=== PATIENT | female | born 1995 | race Caucasian/White ===

== ENCOUNTER → 2020-10-10 08:31 | Outpatient (CLI) | payer SELFPAY | LOC: LABSPEC 08:36 | DX: Z11.59 Encounter for screening for other viral diseases (principal) | CPT/HCPCS: 87635; U0005; U0003 ==

== ENCOUNTER 2023-02-11 22:49 | Emergency (ER) | payer OTHER, SELFPAY ==
[2023-02-11 22:53] VITALS: BP 142/99; PULSE 118; RESP 18; TEMP 36.6; O2SAT 99; BMI 32.8
--- NOTE | 2023-02-11 23:04 | RAD_ITS ---
INDICATION: shoulder EXAMINATION/TECHNIQUE: X-RAY - RIGHT XR Shoulder Min 2 Views COMPARISON: None. FINDINGS: SOFT TISSUES: Unremarkable. BONES/JOINTS: No fracture or dislocation. No significant degenerative changes. No erosive changes. RAD/Shoulder min 2 Views IMPRESSION: Unremarkable views of the right shoulder. Electronically Signed: Aiden Serrano DO at 0:21 EDT ,
--- NOTE | 2023-02-11 23:05 | EX.ED.UPPERE ---
HPI History of Present Illness Chief Complaint: Upper Extremity Injury Narrative Narrative: 7-year-old female presenting with right shoulder pain. She states she was at work and patient was self transferring and started to fall so she jumped in front of him and caught him but hit her right shoulder on the wall. She has some pain in the right shoulder but notes there is no limitation in range of motion. She has not related any bruising. No numbness or tingling. PFSH PFSH Medical History Hypothyroid Home Medications albuterol sulfate 90 mcg/actuation aerosol inhaler 2 inh inhalation Q4H PRN shortness of breath or wheezing 02/11/23 [History Last Taken Unknown] cholecalciferol (vitamin D3) 25 mcg (1,000 unit) chewable tablet (VitaJoy Daily D) 1,000 unit PO DAILY 02/11/23 [History Last Taken Unknown] levothyroxine 75 mcg tablet 75 mcg PO DAILY 02/11/23 [History Last Taken Unknown] loratadine 10 mg tablet (Allerclear) 10 mg PO DAILY 02/11/23 [History Last Taken Unknown] Allergy/AdvReac Type Severity Reaction Status Date / Time No Known Allergies Allergy Verified 02/11/23 22:51 Social History Smoking Status: Never smoker ROS ROS ED Constitutional Constitutional ED: Denies chills, fever(s) or sweats Eyes Eyes: Denies blurry vision or change in vision ENT ENT ED: Denies ear pain or sore throat Cardiovascular Cardiovascular: Denies chest pain, palpitations or racing heartbeat Respiratory/Chest Respiratory/Chest: Denies cough, dyspnea or sputum Gastrointestinal Gastrointestinal: Denies abdominal pain, constipation, diarrhea, nausea or vomiting Genitourinary Genitourinary ED: Denies dysuria, hematuria or urinary frequency Musculoskeletal Musculoskeletal: Reports other Details: Right shoulder pain ; Denies arthralgias, myalgias or neck pain Integumentary Denies abscess, Abrasions or rash Neurologic Neurologic: Denies headache(s), paresthesias or weakness Psychiatric Psychiatric: Denies anxiety, depression, suicidal ideation or suicidal thoughts Endocrine Endocrinology: Denies polydipsia or polyuria EXAM Physical Exam Const Vital Signs: 02/11/23 22:53 Temperature 97.8 F Temperature Source Temporal Pulse Rate 118 H Respiratory Rate 18 Blood Pressure 142/99 H Blood Pressure Mean 113 Pulse Ox 99 Positive well nourished HEENT Reports moist mucous membranes Eyes PERRL and EOMs intact bilaterally Resp normal respiratory effort Cardio regular rate Rate: tachycardic Extremity Extremity Narrative: Is to palpation over the right deltoid. There is no limitation in range of motion in flexion, extension, rotation. Patient able to abduct her arm up over her head without any difficulty. Neuro oriented x3 Sensorium / Orientation: alert Psych mental status grossly normal MDM MDM MDM Narrative Medical decision making narrative: Patient presenting with shoulder pain. She has a limitation of range of motion. I do not suspect rotator cuff tear or fracture. Patient requesting x-ray to be done informed. Patient was given ibuprofen. 2 views of the right shoulder on my interpretation show no acute fracture or subluxation. The patient is safe for discharge. She should use Tylenol and ibuprofen for pain. She is given a work restrictions for work. Impression: 1. Right shoulder contusion Lab Data Attestation: I reviewed the patient's lab results. Discharge Plan Triage Chief Complaint: Upper Extremity Injury ED Provider: Basilio Pedraza Dx/Rx/DC Orders Instructions: ED Shoulder Contusion Prescriptions: No Action levothyroxine 75 mcg tablet 75 mcg PO DAILY Patient Comments: Take 1 tablet by mouth once daily. Take on empty stomach. For Thyroid Rx Instructions: 1.5 tabs per day cholecalciferol (vitamin D3) [VitaJoy Daily D] 25 mcg (1,000 unit) tablet,chewable 1,000 unit PO DAILY albuterol sulfate 90 mcg/actuation HFA aerosol inhaler 2 inh INHALATION Q4H PRN (Reason: shortness of breath or wheezing) Patient Comments: Inhale 2 Puffs as instructed every 4 hours as needed for wheezing/shortness of breath (cough). loratadine [Allerclear] 10 mg tablet 10 mg PO DAILY Primary Care Provider: Micki Thomas Referrals: Care Physician,No Primary [Non-Staff] - Clinic,NOW [Non-Staff] - 3-5 Days Disposition Disposition: Home, Self Care
[2023-02-11] MEDS: Ibuprofen 600 MG Tablet PO (23:12)
== END 2023-02-11 23:37 | disposition home or self-care (01) ==
PROVIDERS: Emergency Provider Student in an Organized Health Care Education/Training Program; PCP Internal Medicine; Visit Provider Student in an Organized Health Care Education/Training Program
DX: S40.011A Contusion of right shoulder, initial encounter (principal); E03.9 Hypothyroidism, unspecified; Y99.0 Civilian activity done for income or pay; Z79.899 Other long term (current) drug therapy; X58.XXXA Exposure to other specified factors, initial encounter
CPT/HCPCS: 73030; 99282

== ENCOUNTER 2024-04-25 06:55 | Emergency (ER) | payer BC, SELFPAY ==
[2024-04-25 06:56] VITALS: BP 137/87; PULSE 108; RESP 16; TEMP 36.9; O2SAT 97; BMI 34.7
--- NOTE | 2024-04-25 07:08 | EDS_ITS ---
HPI HPI - GI History of Present Illness Chief Complaint: Abd Pain Informant: patient Abdominal Pain/Flank Pain Onset: Yesterday Context: Sudden Onset Timing: Continuous Quality: Sharp and Stabbing Location: Epigastric and LUQ Worsened by: Food Relieved by: Nothing Nausea/Vomiting/Emesis GI Symptom: Positive for Nausea; Negative for Vomiting Diarrhea/Melena/Hematochezia GI Symptom: Positive for Diarrhea; Negative for Melena or Hematochezia Stool Quality: Positive for Watery Associated Symptoms Associated Symptoms: Negative for Dysuria, Frequency or Hematuria Narrative Narrative: Patient presents with left upper quadrant abdominal pain that began last night. Patient states it began rather suddenly. Patient states it has been constant. Patient describes it as sharp and stabbing. Patient states it is mainly over the left upper quadrant. Patient states it radiates into her epigastric area and then into her right scapular area. Patient states she gets nauseated whenever she tries to eat or drink anything. Patient denies any vomiting. Patient admits to some diarrhea but denies any melena or hematochezia. Patient denies any urinary complaints. Patient denies any fevers but admits to some subjective chills. [facility] Medical History Contusion of right shoulder Hypothyroid Home Medications ?Medication ?Instructions ?Recorded ?Last Taken ?Type albuterol sulfate 90 mcg/actuation 2 inh inhalation Q4H PRN shortness 02/11/23 Unknown History aerosol inhaler of breath or wheezing cholecalciferol (vitamin D3) 25 1,000 unit PO DAILY 02/11/23 Unknown History mcg (1,000 unit) chewable tablet (VitaJoy Daily D) levothyroxine 75 mcg tablet 75 mcg PO DAILY 02/11/23 Unknown History loratadine 10 mg tablet 10 mg PO DAILY 02/11/23 Unknown History (Allerclear) ondansetron 4 mg disintegrating 4 mg PO Q8H PRN PRN Nausea #10 tabs 04/25/24 Unknown Rx tablet Allergy/AdvReac Type Severity Reaction Status Date / Time No Known Allergies Allergy Verified 04/25/24 06:56 Surgical History no surgical history no surgical history Social History (Updated 04/25/24 @ 07:[address] Sathish Lee, DO) Smoking Status: Never smoker alcohol intake: current alcohol intake frequency: holidays/special occasions only ROS ROS ED Constitutional Constitutional ED: Reports chills and subjective; Denies fever(s) Eyes Eyes: Denies blurry vision or change in vision ENT ENT ED: Denies rhinorrhea or sore throat Cardiovascular Cardiovascular: Reports chest pain; Denies palpitations Respiratory/Chest Respiratory/Chest: Denies cough or dyspnea Gastrointestinal Gastrointestinal: Reports abdominal pain, diarrhea and nausea; Denies melena or vomiting Genitourinary Genitourinary ED: Denies dysuria or hematuria Musculoskeletal Musculoskeletal: Reports back pain; Denies neck pain Integumentary Denies abscess or rash Neurologic Neurologic: Denies headache(s) or weakness Allergic/Immunologic Allergic/Immunologic ED: Denies mouth swelling or urticaria EXAM Physical Exam Const Vital Signs: 04/25/24 06:56 Temperature 98.5 F Temperature Source Oral Pulse Rate 108 H Respiratory Rate 16 Blood Pressure 137/87 H Blood Pressure Mean 103 Pulse Ox 97 Oxygen Delivery Method Room Air Positive well nourished and well developed General Appearance ED: well developed and NAD HEENT Reports moist mucous membranes Neck supple and no JVD Resp normal respiratory effort and clear to auscultation bilaterally Cardio regular rate and regular rhythm GI non-distended Palpation: soft and tender epigastric and LUQ; Negative for guarding or rebound tenderness present Neuro CN's II-XII intact bilaterally, moves all extremities and no sensory deficits noted Sensorium / Orientation: alert Motor Exam: strength 5/5 throughout Psych mental status grossly normal and thought process normal MDM MDM MDM Narrative Medical decision making narrative: Differential diagnosis includes gastritis, peptic ulcer disease, duodenal ulcer, cholecystitis, cholelithiasis, pancreatitis, bowel obstruction, perforation, pyelonephritis, ureteral calculus, diverticulitis, urinary tract infection, and a viral illness. CBC will be obtained to assess for leukocytosis and anemia. Comprehensive metabolic profile will be obtained to assess for hepatic function, renal function, and electrolyte abnormality. Lipase will be obtained to assess for pancreatitis. Serum hCG will be obtained to assess for . Urinalysis will be obtained to assess for urinary tract infection and hematuria. CT scan of the abdomen and pelvis will be obtained to assess for cholecystitis, pancreatitis, bowel obstruction, perforation, and ureteral calculus. Lab Data Attestation: I reviewed the patient's lab results. Lab results narrative: CBC was reviewed and was within normal limits. Comprehensive metabolic profile was reviewed. Potassium was slightly low at 3.3. The remainder is within normal limits. Lipase was reviewed and was normal. Serum hCG was reviewed and was negative. Urinalysis was reviewed. There is no evidence of urinary tract infection or hematuria. Labs: Laboratory Results - last 24 hr 04/25/24 04/25/24 07:12 07:47 WBC 8.8 RBC 4.29 Hgb 12.3 Hct 37.4 MCV 87.2 MCH 28.7 MCHC 32.9 RDW Std Deviation 43.8 RDW Coeff of Bonnie 13.8 Plt Count 352 MPV 10.3 Immature Gran % (Auto) 0.100 Neut % (Auto) 56.0 Lymph % (Auto) 31.9 Kerr % (Auto) 9.0 Eos % (Auto) 2.4 Baso % (Auto) 0.6 Absolute Neuts (auto) 4.9 Absolute Lymphs (auto) 2.81 Nucleated RBC % 0 Sodium 139 Potassium 3.3 L Chloride 106 Carbon Dioxide 25.0 Anion Gap 8 BUN 10 Creatinine 0.84 Estim Creat Clear Calc 92.17 Est GFR (MDRD) Af Amer 102 Est GFR (MDRD) Non-Af 84 BUN/Creatinine Ratio 11.9 Glucose 99 Calcium 9.1 Total Bilirubin 0.60 AST 18 ALT 38 Alkaline Phosphatase 81 Total Protein 7.9 Albumin 3.9 Globulin 4.0 Albumin/Globulin Ratio 1.0 Lipase 33 Serum , Qual NEGATIVE Urine Color Yellow Urine Clarity Sl. Cloudy Urine pH 6.0 Ur Specific Lawrence 1.025 Urine Protein 100 H Urine Glucose (UA) Normal Urine Ketones 5 H Urine Occult Blood Negative Urine Nitrite Negative Urine Bilirubin 1 H Urine Urobilinogen 1 H Ur Leukocyte Esterase 100 H Urine RBC 0 SEEN Urine WBC 0-5 SEEN Ur Squamous Epith Cells 5-10 SEEN Urine Bacteria RARE Urine Mucus 1+ Radiography Diagnostic Testing: Clinical Impression(s) from Imaging Studies Abdomen/Pelvis CT 04/25/24 07:19 IMPRESSION: 1. Normal enhanced CT of the abdomen and pelvis. Electronically Signed: Parth Joseph MD at 8:37 EST Reading Location ID and State: [facility] / [place] , Service support , CT scan of the abdomen and pelvis was obtained. There is no evidence of bowel obstruction or perforation. There is no free air or free fluid. There is no evidence of cholecystitis or cholelithiasis. This was interpreted by the radiologist and was also independently reviewed by myself. Treatment and Re-Evaluation :: Patient was given IV fluids, morphine, and Zofran. Patient was feeling better on reevaluation. Patient was advised of her findings. Patient was given a prescription for Zofran. Patient was instructed to start with a liquid diet and advance as tolerated. Patient was instructed to follow-up with her primary care physician in 5 to 7 days. Patient was instructed return if worse in any way. Patient understood and was agreeable with the plan. All questions were answered. Discharge Plan Triage Chief Complaint: Abd Pain ED Provider: Sathish Lee Dx/Rx/DC Orders Clinical Impression: Abdominal pain, Nausea Instructions: ED Abdominal Pain Unkn Cause Fem Prescriptions: New ondansetron 4 mg tablet,disintegrating 4 mg PO Q8H PRN PRN (Reason: Nausea) Qty: 10 0RF No Action levothyroxine 75 mcg tablet 75 mcg PO DAILY Patient Comments: Take 1 tablet by mouth once daily. Take on empty stomach. For Thyroid Rx Instructions: 1.5 tabs per day cholecalciferol (vitamin D3) [VitaJoy Daily D] 25 mcg (1,000 unit) t ablet,chewable 1,000 unit PO DAILY albuterol sulfate 90 mcg/actuation HFA aerosol inhaler 2 inh INHALATION Q4H PRN (Reason: shortness of breath or wheezing) Patient Comments: Inhale 2 Puffs as instructed every 4 hours as needed for wheezing/shortness of breath (cough). loratadine [Allerclear] 10 mg tablet 10 mg PO DAILY Primary Care Provider: Micki Thomas Referrals: Micki Thomas MD [Primary Care Provider] - 5-7 Days Print Language: Czech Disposition Disposition: Home, Self Care
--- NOTE | 2024-04-25 07:19 | CT_ITS ---
STUDY: CT ABDOMEN AND PELVIS WITH CONTRAST REASON FOR EXAM: Female, 28 years old. Abdominal pain RADIATION DOSAGE (If Supplied By Facility): CTDIvol = ( 15.35 ) mGy, DLP = ( 997.43 ) mGycm TECHNIQUE: Transaxial images were obtained from the dome of the diaphragm to the symphysis pubis without oral contrast. ml of 100mL Isovue-370 contrast was administered. Sagittal and coronal images were reconstructed. Individualized dose optimization techniques were used for this CT. COMPARISON: None. FINDINGS: The visualized lung bases are unremarkable. Normal liver. Normal gallbladder and extrahepatic biliary system. Normal spleen. Normal pancreas. Normal bilateral adrenal glands. Normal right kidney. Normal left kidney. No hydronephrosis or renal masses or CT evidence of pyelonephritis. No large radiopaque stones are seen. Small kidney stones cannot be excluded on postcontrast studies as the contrast can obscure them. No visualized free air or free fluid or bowel dilatation or bowel wall thickening. No visualized bowel masses. No acute inflammatory stranding is present around the solid organs or the bowel loops. No visualized intussusception. Normal visualized stomach. Normal small intestine. Normal colon. The appendix is visualized and appears normal. Normal abdominal aorta. Normal inferior vena cava. Normal retroperitoneum. Normal urinary bladder. Normal visualized uterus. Gross unremarkable uterus and adnexa by CT criteria. Pelvic ultrasound or pelvic MRI is more sensitive and better diagnostically for evaluation of the reproductive organs and adnexa). Trace ascites is present in the cul-de-sac which is usually related to the patient''s menstrual cycle or physiologic fluid. Normal abdominal wall. Normal osseous structures. CT/Abdomen/Pelvis W IV Cont ONLY IMPRESSION: 1. Normal enhanced CT of the abdomen and pelvis. Electronically Signed: Parth Joseph MD at 8:37 EST ,
[2024-04-25] MEDS: 0.9% Normal Saline (1000mL) 1,000 ML 999 ML IV (07:27)
[2024-04-25] MEDS: Morphine 4 MG/ML Syringe IV (07:27)
[2024-04-25] MEDS: Ondansetron 4 MG/2 ML Vial IV (07:27)
[2024-04-25 07:29] LABS: Absolute Lymphocyte Count 2.81 X10^3/uL (0.83-4.51); Absolute Neutrophil Count 4.9 X10^3/uL (2.0-7.7); Basophil# 0.05 X10^3/uL; Basophil% 0.6 % (0-1); Eosinophil# 0.21 X10^3/uL; Eosinophils% 2.4 % (0-5); Hematocrit 37.4 % (37-47); Hemoglobin 12.3 g/dL (12.0-15.0); Lymphocyte # 2.81 X10^3/ul (0.83-4.51); Lymphocyte % 31.9 % (19-41); Mean Corp Hgb Conc 32.9 g/dL (32-36); Mean Corpuscular Hgb 28.7 pg (27.0-32.0); Mean Corpuscular Volume 87.2 fL (81-99); Mean Platelet Vol. 10.3 fl (6.2-12.0); Monocyte# 0.79 X10^3/uL; NRBC Flagged by Analyzer 0 % (0-5); Neutrophil # 4.93 X10^3/uL (2.7-7.7); Platelet Count 352 K/mm3 (150-450); RBC Distribution Width CV 13.8 % (11.6-14.6); RBC Distribution Width SD 43.8 fl (35.1-43.9); Red Blood Count 4.29 M/mm3 (4.2-5.4); White Blood Count 8.8 K/mm3 (4.4-11.0)
[2024-04-25 07:47] LABS: Internal QC Validated? YES +Cl - CLEAR BKGD; Pregnancy, Serum, hCG Quali. NEGATIVE Negative
[2024-04-25 07:49] LABS: AST(SGOT) 18 U/L (15-37); Alanine Aminotransfer ALT/SGPT 38 U/L (13-56); Albumin, Serum 3.9 g/dL (3.2-5.0); Alkaline Phosphatase 81 U/L (45-117); Anion Gap 8 (5-15); BUN 10 mg/dL (7-18); BUN/Creat Ratio 11.9 RATIO (10-20); Calcium,Total 9.1 mg/dL (8.5-10.1); Chloride 106 mmol/L (98-107); Creatinine, Serum 0.84 mg/dL (0.55-1.02); EST Glomerular Filtration Rate 84 mL/min (>60); Est Glom Filt Rate - Afr Amer 102 mL/min (>60); Estimated Creatinine Clearance 92.17 ml/min; Glucose 99 mg/dL (74-106); Lipase 33 U/L (13-75); Potassium 3.3 mmol/L (3.5-5.1); Protein, Total 7.9 g/dL (6.4-8.2); Sodium Level 139 mmol/L (136-145)
[2024-04-25 07:51] LABS: Red Blood Cells-Urine 0 SEEN /hpf (0-5)
[2024-04-25 08:00] LABS: Color, Urine Yellow (Yellow); Glucose, Dipstick Normal (Normal); Ketone-Dipstick 5 mg/dl (Negative); Leukocyte Esterase-Dipstick 100 /ul (Negative); Nitrite-Dipstick Negative (Negative); Occult Blood-Urine Negative /ul (Negative); Protein-Dipstick 100 mg/dl (Negative); Specific Gravity, Urine 1.025 (1.002-1.030); Urine Clarity Sl. Cloudy (Clear); Urine Urobilinogen 1 mg/dl (Normal)
[2024-04-25 08:04] LABS: Urine Bilirubin Dipstick 1 mg/dL (Negative)
[2024-04-25 08:06] LABS: White Blood Cells 0-5 SEEN /hpf (0-5)
[2024-04-25 08:07] LABS: Squamous Epithelial Cells - UA 5-10 SEEN /hpf (5-10)
[2024-04-25 08:08] LABS: Bacteria RARE /hpf (None Seen); Mucous, Urine 1+ /hpf (<or=2+)
[2024-04-25 08:54] VITALS: BP 123/84; PULSE 95; RESP 20; TEMP 36.9; O2SAT 94
== END 2024-04-25 09:00 | disposition home or self-care (01) ==
PROVIDERS: Emergency Provider Emergency Medicine; PCP Internal Medicine; Visit Provider Emergency Medicine
DX: R10.9 Unspecified abdominal pain (principal); R11.0 Nausea; E03.9 Hypothyroidism, unspecified; Z79.51 Long term (current) use of inhaled steroids; Z79.899 Other long term (current) drug therapy
CPT/HCPCS: 74177; 80053; 81001; 83690; 84703; 85025; 96361; 96374; 96375; 99283; Q9967; J2405